=== PATIENT | female | born 1990 ===

== ENCOUNTER 2018-05-05 14:37 | Emergency (ER) | payer SELFPAY ==
[2018-05-05 15:02] VITALS: BP 118/77; RESP 20; TEMP 97.8; O2SAT 99
--- NOTE | 2018-05-05 15:33 | ED PDOC ---
HPI: Eye Injury/Pain Time Seen by Provider: 05/05/18 15:15 Chief Complaint (Nursing): ENT Problem Chief Complaint (Provider): eye discharge, sore throat History Per: Patient, Nondestructive Tester (Marianne Infante RN at bedside for ghanaian translation) Additional Complaint(s): 28 year old female presents to the ED for evaluation of bilateral eye redness and crusted discharge ongoing for 3 days ago. Patient does not wear contacts and denies any vision changes or vision loss. Patient also has sore throat for 3 days with no known fever or chills. Patient is tolerating liquids and solids. She denies any vomiting or cough. PMD: [facility] Past Medical History Reviewed: Historical Data, Nursing Documentation, Vital Signs Vital Signs: Last Vital Signs Temp 97.8 F 05/05/18 14:59 Pulse 109 H 05/05/18 14:59 Resp 20 05/05/18 14:59 BP 118/77 05/05/18 14:59 Pulse Ox 99 05/05/18 14:59 - Medical History PMH: Diabetes, Gastritis - Surgical History Surgical History: Appendectomy, (1) - Family History Family History: States: Unknown Family Hx, Diabetes (grandmother) - Living Arrangements Living Arrangements: With Family - Social History Current smoker - smoking cessation education provided: No Alcohol: None Drugs: Denies - Home Medications Home Medications: Ambulatory Orders Medication Instructions Recorded Vitamins6 [ 1 tab PO DAILY 06/25/15 Vitamin] Aluminum Hydroxide/Magnesium H 30 ml PO PRN PRN #240 udc 03/30/16 [Maalox 30 ml] Omeprazole Magnesium [Prilosec Otc] 20 mg PO DAILY #30 tcp 03/30/16 Azithromycin [Zithromax] 250 mg PO DAILY #6 tab 05/05/18 Tobramycin [Tobrex] 5 ml TOP QID #1 bottle 05/05/18 - Allergies Allergies/Adverse Reactions: Allergies Allergy/AdvReac Type Severity Reaction Status Date / Time No Known Allergies Allergy Verified 05/05/18 14:58 Review of Systems ROS Statement: Except As Marked, All Systems Reviewed And Found Negative Constitutional: Negative for: Fever, Chills Eyes: Positive for: Conjunctivae Inflammation (to both eyes with discharge). Negative for: Vision Change ENT: Positive for: Throat Pain Cardiovascular: Negative for: Chest Pain Respiratory: Negative for: Cough Gastrointestinal: Negative for: Nausea, Vomiting Neurological: Positive for: Headache Physical Exam - Reviewed Nursing Documentation Reviewed: Yes Vital Signs Reviewed: Yes - Physical Exam Appears: Positive for: Well, Non-toxic, No Acute Distress Head Exam: Positive for: ATRAUMATIC, NORMAL INSPECTION, NORMOCEPHALIC Skin: Positive for: Normal Color. Negative for: Rash Eye Exam: Positive for: EOMI, PERRL, Conjunctival injection (bilateral), Other ( Yellow crusty discharge noted to eyes bilaterally with no periorbital swelling or erythema). Negative for: Nystagmus, Periorbital swelling, Periorbital tenderness ENT: Positive for: Pharyngeal Erythema, Tonsillar Swelling. Negative for: Nasal Congestion Cardiovascular/Chest: Positive for: Regular Rate, Rhythm Respiratory: Positive for: Normal Breath Sounds. Negative for: Wheezing, Respiratory Distress Neurologic/Psych: Positive for: Alert, Oriented (x3) - Laboratory Results Urine POC: Negative - ECG O2 Sat by Pulse Oximetry: 99 (RA) Pulse Ox Interpretation: Normal Medical Decision Making Medical Decision Making: Time: 1521 Initial Impression: 28 year old female with conjunctivitis and pharyngitis Initial Plan: --ED Urine --Throat Culture Patient given prescriptions for tobramycin eyedrops and Zithromax. Advised NSAIDs for pain as needed and clinic follow-up in 2-3 days. Scribe Attestation: Documented by Elda Urbano, acting as a scribe for Anyi Gray PA-C. Provider Scribe Attestation: All medical record entries made by the Scribe were at my direction and personally dictated by me. I have reviewed the chart and agree that the record accurately reflects my personal performance of the history, physical exam, medical decision making, and the department course for this patient. I have also personally directed, reviewed, and agree with the discharge instructions and disposition. Disposition - Clinical Impression Clinical Impression: Conjunctivitis, Pharyngitis - Patient ED Disposition Is Patient to be Admitted: No Counseled Patient/Family Regarding: Studies Performed, Diagnosis, Need For Followup, Rx Given - Disposition Referrals: [facility] [Outside] Disposition: Routine/Home Disposition Time: 16:08 Condition: STABLE Additional Instructions: Take prescription meds as directed. [id number] Tylenol or Advil for pain. Follow-up with clinic in 2-3 days Prescriptions: Azithromycin [Zithromax] 250 mg PO DAILY #6 tab Tobramycin [Tobrex] 5 ml TOP QID #1 bottle Instructions: Conjunctivitis ([place]keye), Sore Throat, Adult (DC) Forms: [employer] (Liberian) Print Language: BRAZILIAN
[2018-05-05 16:23] VITALS: PULSE 97
== END 2018-05-05 16:22 | disposition home or self-care (01) ==
LOC: H.ER 14:37
DX: H10.9 Unspecified conjunctivitis (principal); J02.9 Acute pharyngitis, unspecified; E11.9 Type 2 diabetes mellitus without complications